=== PATIENT | female | born 1935 | race Caucasian/White ===

== ENCOUNTER → 2019-11-26 13:07 | Outpatient (CLI) | payer MEDICARE, SELFPAY ==
--- NOTE | 2019-11-26 | DI.MRI.S_ITS ---
PROCEDURE: MR KNEE RT WO CON INDICATIONS: Unilateral primary osteoarthritis, right knee TECHNIQUE: Noncontrast sagittal PD fast spin echo and T2 fast spin echo with fat saturation, sagittal 3-D FLASH with fat saturation; coronal T1 spin echo and PD fast spin echo with fat saturation, and axial PD fast spin echo with fat saturation through the knee. COMPARISON: None. FINDINGS: Image quality: Excellent. Menisci: There is subtle oblique tear involving posterior horn of medial meniscus extending to inferior articulating surface. Complex tear involving anterior horn, body and posterior horn of lateral meniscus is seen extending to both superior and inferior articulating surfaces. Peripheral displacement of lateral meniscus is also noted bowing lateral collateral ligament. The meniscal root ligaments appear intact. Cruciate ligaments: Myxoid degenerative changes in anterior cruciate ligament is seen. No evidence of ACL rupture. PCL is intact. Medial structures: The medial collateral ligament appears intact. The posterior oblique ligament, semimembranosus tendon insertions, oblique popliteal ligament, and meniscocapsular junction appear intact. Visualized portions of the pes anserinus tendons appear normal. No abnormal bursal fluid. Lateral structures: There is low-grade lateral collateral ligament sprain/partial-thickness tear. The popliteus tendon appears normal; the popliteofibular ligament appears intact. The posterosuperior and anteroinferior popliteomeniscal fascicles appear intact. The arcuate and fabellofibular ligaments appear intact, on either side of the lateral inferior geniculate artery. Iliotibial band appears normal. Anterior structures: The quadriceps and patellar tendons appear intact. Patellar alignment is normal. No femoral trochlear dysplasia or ventral trochlear prominence. No edema in the infrapatellar fat pad. Bones and cartilage: No bone marrow contusions or fractures. Mild to moderate tricompartmental osteoarthritis and chondromalacia is seen more prominent in lateral femoral tibial compartment. Joint space: There is moderate amount of joint fluid, no gross intra-articular loose body. 2.5 x 1 x 4.8 cm popliteal cyst is seen. Normal appearing synovial plicae are incidentally noted. IMPRESSION: 1. Complex tear involving anterior horn, body and posterior horn of lateral meniscus extending to both superior and inferior articulating surfaces. Suggestion of subtle oblique tear involving posterior horn of medial meniscus extending to inferior articulating surface. 2. Degenerative changes in anterior cruciate ligament. No full-thickness ACL rupture. PCL is intact. 3. Low-grade LCL sprain/partial-thickness tear near its proximal insertion. 4. Mild to moderate tricompartmental osteoarthritis and chondromalacia more prominent in lateral femoral tibial compartment. Moderate amount of joint fluid, no gross loose body. Popliteal cyst as above. Dictated by: Julian Mark M.D. on 11/26/2019 at 15:24 Approved by: Julian Mark M.D. on 11/26/2019 at 15:33
== END ==
PROVIDERS: Family Provider Hospitalist; Referring Provider Orthopaedic Surgery; Visit Provider Orthopaedic Surgery
DX: M17.11 Unilateral primary osteoarthritis, right knee (principal); S83.271A Complex tear of lateral meniscus, current injury, right knee, initial encounter; S83.421A Sprain of lateral collateral ligament of right knee, initial encounter; M94.261 Chondromalacia, right knee; M71.21 Synovial cyst of popliteal space [Baker], right knee
CPT/HCPCS: 73721